=== PATIENT | female | born 1975 | race Caucasian/White ===

== ENCOUNTER 2019-01-29 11:13 | Day surgery (SDC) | payer BC ==
[2019-01-29] MEDS ORDERED: MIDAZOLAM HCL 2MG/2ML VIAL IV ONE (11:14)
[2019-01-29] MEDS ORDERED: KETOROLAC 30 MG/ML VIAL IVP ONE (11:14)
[2019-01-29] MEDS ORDERED: ONDANSETRON HCL IV 4 MG/2 ML VIAL IVP ONE (11:14)
[2019-01-29] MEDS ORDERED: PROPOFOL 10 MG/ML VIAL IV ONE (11:14)
[2019-01-29] MEDS ORDERED: DEXAMETHASONE 4 MG/ML 1ML VIAL IVP ONE (11:14)
[2019-01-29] MEDS ORDERED: FENTANYL PF 100MCG/2ML VIAL IV ONE (11:14)
[2019-01-29] MEDS ORDERED: GLYCOPYRROLATE 0.2 MG/ML ML IV ONE (11:14)
[2019-01-29] MEDS ORDERED: SEVOFLURANE 250 ML INH ONE (11:14)
[2019-01-29] MEDS ORDERED: EPHEDRINE SULFATE 50 MG/ML ML IV ONE (11:14)
[2019-01-29] MEDS ORDERED: LIDOCAINE 2% MDV (20MG/ML) 20ML VIAL IV ONE (11:14)
[2019-01-29] MEDS: RINGERS SOLUTION,LACTATED 1,000 ML IV ONE ×2 (11:45→14:05)
[2019-01-29] MEDS: ACETAMINOPHEN 1,000 MG/100 ML BTL IVPB ONE (12:30)
[2019-01-29] MEDS: CEFAZOLIN 2 Gram 2 GM/50 ML BAG IVPB ONE (13:35)
[2019-01-29] MEDS: PHENAZOPYRIDINE HCL 95 MG TABLET PO ONE (15:44)
== END 2019-01-29 16:07 | disposition home or self-care (01) ==
LOC: SUR 11:13
PROVIDERS: ATTEND Urology
DX: N20.0 Calculus of kidney (principal); E03.9 Hypothyroidism, unspecified
CPT/HCPCS: 81025; C1769; J1885; J2405; J7120